=== PATIENT | female | born 1975 ===

== ENCOUNTER 2024-06-05 11:21 | Emergency (ER) | payer SELFPAY ==
[2024-06-05] MEDS: Lidocaine 2% 20 ML MDV ONE (13:32)
== END 2024-06-05 14:10 | disposition home or self-care (01) ==
LOC: DL.ED 11:21
DX: J10.1 Influenza due to other identified influenza virus with other respiratory manifestations (principal)
CPT/HCPCS: 64400; 87804; 99283; 99283-25; J3490; U0002

== ENCOUNTER 2025-02-03 03:14 | Emergency (ER) | payer OTHER, BC ==
[2025-02-03] MEDS: Ketorolac 30 MG/ML SDV IM ONE (03:46)
[2025-02-03] MEDS: Take Home: Acetaminophen/HYDROcodone 325-5 MG, 5 Tab Pack PO ONE (04:33)
== END 2025-02-03 04:38 | disposition home or self-care (01) ==
LOC: DL.ED 03:14
DX: S33.5XXA Sprain of ligaments of lumbar spine, initial encounter (principal); W19.XXXA Unspecified fall, initial encounter
CPT/HCPCS: 72100; 96372; 99282; 99284; A9270; J1885